=== PATIENT | female | born 1980 | race Caucasian/White ===

== ENCOUNTER 2017-01-06 19:08 | Emergency (ER) | payer MEDICAID ==
[~2017-01-06] VITALS: Ht 175.3 cm; Wt 104.3 kg
[2017-01-06 19:12] VITALS: BP 150/90
--- NOTE | 2017-01-06 19:32 | NUR ---
PT. AMBULATES TO ER BED 5
[2017-01-06] MEDS ORDERED: KETOROLAC 30 MG/ML VIAL IM ONE (19:40)
--- NOTE | 2017-01-06 19:40 | NUR ---
36Y/F PATIENT PRESENTS TO ED WITH C/O RT. EAR PAIN X 3 DAYS . PT STATES NO FEVER. DENIES N/V/D; SKIN IS PINK/WARM/DRY; AAOX4 WITH EVEN AND STEADY GAIT; LUNGS CLEAR BL; HR EVEN AND REGULAR; PT DENIES ANY FEVER, CP, SOB, OR COUGH AT THIS TIME; PATIENT STATES PAIN OF 7/10 AT THIS TIME; VSS; PATIENT POSITIONED FOR COMFORT; HOB ELEVATED; BEDRAILS UP X2; BED DOWN. ER MD MADE AWARE OF PT STATUS.
--- NOTE | 2017-01-06 19:40 | NUR ---
Patient being evaluated by at bedside.
--- NOTE | 2017-01-06 20:15 | NUR ---
Note undone in EDM - 01/06/17 at 2018 by MED 36Y/F PATIENT PRESENTS TO ED WITH C/O RT. EAR PAIN X 3 DAYS . PT STATES NO FEVER. DENIES N/V/D; SKIN IS PINK/WARM/DRY; AAOX4 WITH EVEN AND STEADY GAIT; LUNGS CLEAR BL; HR EVEN AND REGULAR; PT DENIES ANY FEVER, CP, SOB, OR COUGH AT THIS TIME; PATIENT STATES PAIN OF 7/10 AT THIS TIME; VSS; PATIENT POSITIONED FOR COMFORT; HOB ELEVATED; BEDRAILS UP X2; BED DOWN. ER MADE AWARE OF PT STATUS.
--- NOTE | 2017-01-06 20:15 | NUR ---
Patient discharged with v/s stable. Written and verbal after care instructions given and explained. Patient alert, oriented and verbalized understanding of instructions. Ambulatory with steady gait. All questions addressed prior to discharge. ID band removed. Patient advised to follow up with PMD. Rx of CIPRODEX 0.3%-0.1% OTIC SUSPENSION, NAPROSYN 500 MG, NORCO 5/325 MG, AUGMENTIN 875 MG given. Patient educated on indication of medication including possible reaction and side effects. Opportunity to ask questions provided and answered.
[2017-01-06 20:17] VITALS: BP 128/91
== END 2017-01-06 20:15 | disposition home or self-care (01) ==
LOC: MED 19:08
DX: H60.92 Unspecified otitis externa, left ear (principal); R03.0 Elevated blood-pressure reading, without diagnosis of hypertension
CPT/HCPCS: 81002; 81025; 96372; 99283; J1885

== ENCOUNTER 2018-03-28 19:55 | Emergency (ER) | payer MEDICAID ==
[~2018-03-28] VITALS: Ht 167.6 cm; Wt 101.2 kg
[2018-03-28 19:58] VITALS: BP 134/82
[2018-03-28 20:43] LABS: APPEARANCE,URINE CLEAR (CLEAR); BILIRUBIN,URINE NEGATIVE (NEGATIVE); BLOOD, URINE TRACE-I (NEGATIVE); COLOR,URINE YELLOW (YELLOW); LEUKOCYTE ESTERASE ,URINE 2+ (NEGATIVE); NITRITE, URINE NEGATIVE (NEGATIVE); UGLUCOSE 1+ (NEGATIVE)
[2018-03-28 20:54] LABS: RBC,URINE 0-5 (RARE) /HPF (0-5); WBC,URINE 20-60 /HPF (0-5)
--- NOTE | 2018-03-28 21:15 | NUR ---
PT AMBULATED TO BED 8
--- NOTE | 2018-03-28 21:15 | NUR ---
37/F CAME IN W C/O INTERMITTENT DIZZINESS AND PAINFUL URINATION X 3 WEEKS. PT REPORTS SUDDEN ONSET OF DIZZINESS FOR 3 WEEKS, STATES " I MIGHT HAVE PASSED OUT TWICE, I DONT KNOW". NO S/S OF HEAD INJURY. ALSO REPORTS INTERMITTENT RT FLANK PAIN, DENIES HEMATURIA. REPORTS NAUSEA. DENIES PMH
--- NOTE | 2018-03-28 22:10 | NUR ---
Dr. Cramer evaluating patient at bedside.
[2018-03-28] MEDS ORDERED: NACL 0.9% 1,000 ML IV ONE (22:45)
[2018-03-28] MEDS ORDERED: cefTRIAXone 1,000 MG VIAL ONE (22:55)
[2018-03-28 23:26] VITALS: BP 114/64
--- NOTE | 2018-03-28 23:26 | NUR ---
Patient discharged with v/s stable. Written and verbal after care instructions given and explained. Patient alert, oriented and verbalized understanding of instructions. Ambulatory with steady gait. All questions addressed prior to discharge. ID band removed. Patient advised to follow up with PMD. Rx of MACROBID given. Patient educated on indication of medication including possible reaction and side effects. Opportunity to ask questions provided and answered. IV removed, catheter intact and site benign. Applied folded 4x4 gauze and tape to stop bleeding.
== END 2018-03-28 23:26 | disposition home or self-care (01) ==
LOC: MED 19:55
DX: E86.0 Dehydration (principal); N39.0 Urinary tract infection, site not specified
CPT/HCPCS: 70450; 81001; 81025; 87086; 93005; 96365; 99285; J0696; J7060

== ENCOUNTER 2018-11-30 13:27 | Emergency (ER) | payer MEDICAID ==
[~2018-11-30] VITALS: Ht 175.3 cm; Wt 97.7 kg
[2018-11-30 13:33] VITALS: BP 132/90
--- NOTE | 2018-11-30 13:45 | NUR ---
C/O EPIGASTRIC PAIN X30 MIN. PT REPORTS SHARP PAIN WITH INSPIRATION IN EPIGASTRIC REGION AND LT AND RT UPPER ABD JUST BELOW RIB CAGE AND NUMBNES IN BL HANDS. PT ALSO STATES SHE HAS BEEN GETTING DIZZY X3 WEEKS WHEN SHE STANDS UP. DENIES N/V/D; SKIN IS PINK/WARM/DRY; AAOX4 WITH EVEN AND STEADY GAIT; PT DENIES ANY FEVER, CP, SOB, OR COUGH AT THIS TIME; PATIENT STATES PAIN OF 8/10 AT THIS TIME; VSS; PATIENT POSITIONED FOR COMFORT; HOB ELEVATED; BEDRAILS UP X1; BED DOWN. ER MD MADE AWARE OF PT STATUS.
[2018-11-30] MEDS ORDERED: ALUMINUM HYD/MAG/SIMETHICONE 30 ML UDC PO ONE (13:50)
[2018-11-30] MEDS ORDERED: DICYCLOMINE HCL LIQUID 10 MG/5 ML UDC PO ONE (13:50)
[2018-11-30] MEDS ORDERED: LIDOCAINE VISCOUS 2% 20 ML UDC PO ONE (13:50)
[2018-11-30 14:39] VITALS: BP 134/86
--- NOTE | 2018-11-30 14:39 | NUR ---
Patient discharged with v/s stable. Written and verbal after care instructions given and explained. Patient alert, oriented and verbalized understanding of instructions. Ambulatory with steady gait. All questions addressed prior to discharge. ID band removed. Patient advised to follow up with PMD. Rx of prilosec given. Patient educated on indication of medication including possible reaction and side effects. Opportunity to ask questions provided and answered.
== END 2018-11-30 14:39 | disposition home or self-care (01) ==
LOC: MED 13:27
DX: K29.00 Acute gastritis without bleeding (principal); R07.1 Chest pain on breathing; R11.0 Nausea; E11.9 Type 2 diabetes mellitus without complications
CPT/HCPCS: 81002; 81025; 99283

== ENCOUNTER 2019-08-05 11:40 | Inpatient (IN) | payer MEDICAID ==
[~2019-08-05] VITALS: Ht 177.8 cm; Wt 96.6 kg
[2019-08-05 11:55] VITALS: BP 131/69
--- NOTE | 2019-08-05 11:57 | NUR ---
PT AMBULATED TO LOBBY WITH STEADY GAIT.
--- NOTE | 2019-08-05 12:51 | NUR ---
Patient ambulated to bed 4. RN evaluating patient at bedside.
--- NOTE | 2019-08-05 13:08 | NUR ---
39/F BIB FAMILY C/O ABD PAIN RADIATING TO BACK X 3 DAYS. MEDHX: DM. ABD SOFT. PATIENT STATES PAIN OF 10/10 AT THIS TIME.PATIENT POSITIONED FOR COMFORT; HOB ELEVATED; BEDRAILS UP X1; BED DOWN. ER MD MADE AWARE OF PT STATUS.
[2019-08-05] MEDS ORDERED: MORPHINE SULFATE 4 MG/ML SYR IVP ONE (13:25)
[2019-08-05] MEDS ORDERED: NACL 0.9% 1,000 ML IV ONE (13:25)
[2019-08-05] MEDS ORDERED: ONDANSETRON 4 MG/2 ML VIAL IVP ONE (13:25)
--- NOTE | 2019-08-05 13:45 | NUR ---
LAB AT BEDSIDE.
--- NOTE | 2019-08-05 14:03 | NUR ---
US tech at bedside for exam.
[2019-08-05 14:05] LABS: BASOPHILS # (AUTO) 0.1 K/uL (0.00-0.22); BASOPHILS % (AUTO) 0.9 % (0.0-2.0); EOSINOPHILS % (AUTO) 0.4 % (0.0-4.0); HEMATOCRIT 37.6 % (36-48); HEMOGLOBIN 12.3 g/dL (12.0-16.0); LYMPHOCYTES # (AUTO) 1.2 K/uL (2.5-16.5); LYMPHOCYTES % (AUTO) 16.7 % (20.5-51.1); MEAN CORPUSCULAR HEMOGLOBIN 29 pg (27-31); MEAN CORPUSCULAR HGB CONC 33 g/dL (33-37); MONOCYTES # (AUTO) 0.4 K/uL (0.8-1.0); MONOCYTES % (AUTO) 5.5 % (1.7-9.3); NEUTROPHILS # (AUTO) 5.3 K/uL (1.8-7.7); NEUTROPHILS % (AUTO) 76.5 % (42.2-75.2); PLATELET COUNT (AUTO) 261 K/uL (140-450); RED BLOOD CELL COUNT(AUTO) 4.27 MIL/uL (4.20-5.40)
[2019-08-05 14:22] LABS: ALBUMIN 3.4 g/dL (3.4-5.0); ANION GAP 10.8 (8-16); CARBON DIOXIDE 28.4 mmol/L (21-32); CREATININE 0.8 mg/dL (0.6-1.3); POTASSIUM 4.2 mmol/L (3.5-5.1); TOTAL BILIRUBIN 3.7 mg/dL (0.0-1.0)
[2019-08-05 15:02] LABS: APPEARANCE,URINE SL CLOUDY (CLEAR); BILIRUBIN,URINE 2+ (NEGATIVE); BLOOD, URINE NEGATIVE (NEGATIVE); COLOR,URINE ORANGE (YELLOW); LEUKOCYTE ESTERASE ,URINE TRACE (NEGATIVE); NITRITE, URINE NEGATIVE (NEGATIVE); UGLUCOSE 3+ (NEGATIVE)
[2019-08-05 15:13] LABS: RBC,URINE 0-5 /HPF (0-5); WBC,URINE 0-5 /HPF (0-5)
[2019-08-05] MEDS ORDERED: DEXT 5% /NACL 0.9% 1,000 ML IV SCH (17:06)
--- NOTE | 2019-08-05 17:14 | NUR ---
X RAY AT BEDSIDE.
--- NOTE | 2019-08-05 17:22 | NUR ---
PT TAKEN TO CT .
[2019-08-05 17:45] VITALS: BP 113/63
--- NOTE | 2019-08-05 17:45 | NUR ---
RECEIVED REPORT FROM QUALITY CONTROL LEADKODY SALAZAR. PT IS AAOX4, NO C/O PAIN AT THIS TIME. IV ON LT AC 20 GA ON SALINE LOCK, FLUSHING WITH NO RESISTANCE. RESPIRATIONS EVEN AND UNLABORED ON RA. ACTIVE BS, SOFT ABD, LBM 08/05/19. PT IS AWARE THAT SHE IS TO BE KEPT NPO, PT IS AGREEABLE. PT TRANSFERRED FROM WHEELCHAIR TO BED WITH STEADY GAIT. CALL LIGHT IS WITHIN REACH. REVIEWED POC WITH PT, PT VERBALIZED UNDERSTANDING.
--- NOTE | 2019-08-05 17:45 | NUR ---
Patient will be admitted to care of DR LOPEZ. Admited to [facility]. Will go to [id number]. Belongings list completed. Report to [facility].
[2019-08-05 18:09] LABS: PROTHROMBIN TIME 9.5 secs (10.8-13.4)
[2019-08-05 18:20] LABS: CHOL/HDL RATIO 4.7 (1-4.5); FREE T4 (FREE THYROXINE) 2.73 ng/dL (0.76-1.46); MAGNESIUM 1.7 mg/dL (1.8-2.4); PHOSPHORUS 2.4 mg/dL (2.5-4.9); THYROID STIMULATING HORMONE 1.99 uIU/mL (0.34-3.74)
--- NOTE | 2019-08-05 18:25 | NUR ---
STUDENT RESIDENTS AT BEDSIDE ASKING ADMISSION QUESTIONS AND PHYSICAL ASSESSMENTS. PT HAS NO S/S OF DISTRESS.
[2019-08-05] MEDS ORDERED: DOCUSATE SODIUM 100 MG GELCAP PO PRN (19:05)
[2019-08-05] MEDS ORDERED: ACETAMINOPHEN 325 MG TAB PO PRN (19:05)
[2019-08-05] MEDS ORDERED: LORazepam 2 MG/ML VIAL IM/IVP PRN (19:05)
[2019-08-05] MEDS ORDERED: ZOLPIDEM 5 MG TAB PO PRN (19:05)
--- NOTE | 2019-08-05 19:05 | NUR ---
ENDORSED PT TO SALES ORDER SPECIALIST NURSE EVA. PT HAS NO S/S OF DISTRESS AT THIS TIME.
--- NOTE | 2019-08-05 19:05 | NUR ---
RECIEVED PT AAOX4 , NID , IV SITE INTACT AND PATENT. NPO EXCEPT MEDS - RE INSTRUCTED . PLAN OF CARE DISCUSSED AND VERBALIZE UNDERSTANDING . C/O OF HEAD ACHE - WILL MEDICATE . ON SAFETY PRECAUTION PROTOCOL - CALL LIGHT WITHIN REACH , WILL CONT. TO MONITOR.
[2019-08-05] MEDS ORDERED: DEXTROSE 50% 50 ML SYR IVP PRN (19:30)
[2019-08-05] MEDS: HYDROcodone/APAP 5/325 MG 1 TAB TAB PO PRN (19:50)
[2019-08-05] MEDS: BLOOD GLUCOSE MONITORING 1 DEV DEV FS SCH (19:54)
[2019-08-05 20:00] VITALS: BP 140/83
[2019-08-05] MEDS: LACTATED RINGERS 1,000 ML IV SCH (20:41)
[2019-08-05] MEDS ORDERED: SODIUM PHOS / POTASSIUM PHOS 1 PKT PDR PO SCH (21:00)
[2019-08-05] MEDS ORDERED: MAGNESIUM CHLORIDE 64 MG TABEC PO SCH (21:00)
[2019-08-05] MEDS ORDERED: cefTRIAXone 1,000 MG VIAL ONE (21:13)
--- NOTE | 2019-08-05 21:17 | NUR ---
UNHOOKED LR - FLUSH THE IV SITE W/ NSS PRIOR THE ROCEPHIN TO BE GIVEN.- TO BE FLUSH AGAIN W/ NSS AFTER ROCEPHIN CONSUME- CONT. TO MONITOR.
--- NOTE | 2019-08-05 22:00 | NUR ---
MADE ROUNDS . SHE SAID REDUCED HEADACHE . WILL CONT. TO MONITOR. MAINTAIN NPO RE INSTRUCTED . CALL LIGHT WITHIN REACH.
[2019-08-06] VITALS: BP 130/70
[2019-08-06 00:06] LABS: BARBITURATE, URINE NEG. ng/ml (NEG <=200); BENZODIAZEPINE, URINE NEG. ng/mL (NEG <=200); CANNABINOID, URINE NEG. ng/mL (NEG <=50); COCAINE, URINE NEG. ng/mL (NEG <=300); OPIATE, URINE NEG. ng/mL (NEG <=2000); PHENCYCLIDINE SCREEN,URINE NEG. ng/mL (NEG <=25)
[2019-08-06] MEDS: ONDANSETRON 4 MG/2 ML VIAL IM/IVP PRN ×3 (00:45→23:16)
[2019-08-06] MEDS: MORPHINE SULFATE 2 MG/ML SYR IVP PRN ×3 (00:45→14:36)
--- NOTE | 2019-08-06 04:00 | NUR ---
NO COMPLAIN MADE.
[2019-08-06] MEDS: LACTATED RINGERS 1,000 ML IV SCH ×4 (05:40→21:30)
--- NOTE | 2019-08-06 06:00 | NUR ---
161 - INSULIN NOT GIVEN ORDERED BY CARLI.
[2019-08-06] MEDS: BLOOD GLUCOSE MONITORING 1 DEV DEV FS SCH ×5 (06:14→21:31)
[2019-08-06 06:51] LABS: BASOPHILS # (AUTO) 0.1 K/uL (0.00-0.22); BASOPHILS % (AUTO) 0.7 % (0.0-2.0); EOSINOPHILS % (AUTO) 0.7 % (0.0-4.0); HEMATOCRIT 35.4 % (36-48); HEMOGLOBIN 11.6 g/dL (12.0-16.0); LYMPHOCYTES # (AUTO) 1.7 K/uL (2.5-16.5); LYMPHOCYTES % (AUTO) 24.5 % (20.5-51.1); MEAN CORPUSCULAR HEMOGLOBIN 29 pg (27-31); MEAN CORPUSCULAR HGB CONC 33 g/dL (33-37); MEAN CORPUSCULAR VOLUME 88.4 fL (80-94); MONOCYTES # (AUTO) 0.4 K/uL (0.8-1.0); MONOCYTES % (AUTO) 5.8 % (1.7-9.3); NEUTROPHILS # (AUTO) 4.8 K/uL (1.8-7.7); NEUTROPHILS % (AUTO) 68.3 % (42.2-75.2); PLATELET COUNT (AUTO) 244 K/uL (140-450); RED BLOOD CELL COUNT(AUTO) 4.01 MIL/uL (4.20-5.40); RED CELL DISTRIBUTION WIDTH 13.9 % (11.6-13.7); WHITE BLOOD COUNT (AUTO) 7.1 K/uL (4.8-10.8)
--- NOTE | 2019-08-06 07:29 | NUR ---
ENDORSE TO AM SHIFT -PT- STABLE - ENDORSE TO AM SHIFT ABOUT THE PREACAUTIONARY FOR ROCEPHIN - ADM. DONT GIVE IT W/ LR.
--- NOTE | 2019-08-06 07:35 | NUR ---
RECEIVED REPORT FROM BARREL CLEANER RN FOR CONTINUITY OF CARE. PT IS AAOX4, NO C/O PAIN AT THIS TIME. IV ON LT AC 20 GA INFUSING LR @ 100ML/HR, FLUSHING WITH NO RESISTANCE. RESPIRATIONS EVEN AND UNLABORED ON RA. ACTIVE BS, SOFT ABD, LBM 08/05/19. PT IS AWARE THAT SHE IS TO BE KEPT NPO FOR POSSIBLE PROCEDURE TODAY, PT IS AGREEABLE. DISCUSSED POC WITH PT AND PT VERBALIZED UNDERSTANDING. CALL LIGHT IS WITHIN REACH. BED IN LOW POSITION. WILL ROUND FREQUENTLY ON PT.
[2019-08-06 07:38] LABS: ALBUMIN 3.1 g/dL (3.4-5.0); ANION GAP 8.8 (8-16); CARBON DIOXIDE 29.4 mmol/L (21-32); CREATININE 0.7 mg/dL (0.6-1.3); MAGNESIUM 1.7 mg/dL (1.8-2.4); PHOSPHORUS 3.2 mg/dL (2.5-4.9); POTASSIUM 4.2 mmol/L (3.5-5.1); TOTAL BILIRUBIN 2.3 mg/dL (0.0-1.0)
[2019-08-06 08:00] VITALS: BP 105/64
[2019-08-06] MEDS: SODIUM PHOS / POTASSIUM PHOS 1 PKT PDR PO SCH ×3 (08:10→17:00)
[2019-08-06] MEDS: MAGNESIUM CHLORIDE 64 MG TABEC PO SCH (08:11)
[2019-08-06] MEDS: LACTOBACILLUS RHAMNOSUS GG 1 EACH CAP PO SCH (08:11)
--- NOTE | 2019-08-06 08:20 | NUR ---
PATIENT HAS BEEN SCREENED AND CATEGORIZED HIGH NUTRITION RISK. PATIENT WILL BE SEEN WITHIN 1-2 DAYS OF ADMISSION. 08/06/19-08/07/[address]
--- NOTE | 2019-08-06 09:41 | NUR ---
ADMINISTERED PT MORNING MEDS. PT TOLERATED WELL. ALL NEEDS MET. WILL CONTINUE TO ROUND ON PT.
[2019-08-06] MEDS ORDERED: BUPIVACAINE-MPF/EPI 0.25% 10 ML VIAL INJ ONE (09:59)
[2019-08-06] MEDS ORDERED: LIDOCAINE 1% 500 MG/50 ML VIAL ONE (09:59)
--- NOTE | 2019-08-06 10:45 | NUR ---
PT TAKEN TO OR FOR LAP CHOLY. PT LEFT IN STABLE CONDITION.
[2019-08-06] MEDS ORDERED: PROPOFOL 200 MG/20 ML VIAL IV ONE (10:50)
[2019-08-06] MEDS ORDERED: SUCCINYLCHOLINE CHLORIDE 200 MG/10 ML VIAL IVP ONE (10:50)
[2019-08-06] MEDS ORDERED: ROCURONIUM 50 MG/5 ML VIAL IV ONE (10:50)
[2019-08-06] MEDS ORDERED: DEXAMETHASONE 4 MG/ML VIAL ONE (10:50)
[2019-08-06] MEDS ORDERED: ONDANSETRON 4 MG/2 ML VIAL ONE (10:50)
[2019-08-06] MEDS ORDERED: MIDAZOLAM 2 MG/2 ML VIAL ONE (10:50)
[2019-08-06] MEDS ORDERED: KETOROLAC 30 MG/ML VIAL ONE (10:50)
[2019-08-06] MEDS ORDERED: fentaNYL 0.05 MG/ML VIAL ONE (10:50)
[2019-08-06] MEDS ORDERED: SEVOFLURANE 250 ML BTL INH ONE (10:50)
[2019-08-06] MEDS ORDERED: MEPERIDINE 50 MG/ML SYR ONE (10:50)
[2019-08-06] MEDS ORDERED: HYDROmorphone 1 MG/ML AMP IVP PRN (11:40)
[2019-08-06] MEDS ORDERED: ONDANSETRON 4 MG/2 ML VIAL IVP PRN (11:40)
[2019-08-06] MEDS ORDERED: diphenhydrAMINE 50 MG/ML VIAL IVP PRN (11:40)
[2019-08-06] MEDS ORDERED: MEPERIDINE 25 MG/ML SYR IVP PRN (11:40)
[2019-08-06] MEDS: INSULIN LISPRO SLIDING SCALE 100 UNITS/ML VIAL SUBQ PRN ×3 (13:10→21:37)
--- NOTE | 2019-08-06 13:54 | NUR ---
08/06/19 RD INITIAL ASSESSMENT COMPLETED PLEASE REFER TO NUTRITION ASSESSMENT UNDER CARE ACTIVITY FOR ESTIMATED NUTRITIONAL NEEDS. 1. CONTINUE NPO DIET PER MD 2. IF/WHEN MEDICALLY APPROPRIATE, CONSIDER ADVANCING PT TO CCHO, CARDIAC DIET 3. RD TO FOLLOW-UP 2-3 DAYS, HIGH RISK SOWMYA ALEMAN RD
--- NOTE | 2019-08-06 13:54 | NUR ---
DC PLANNIN YRS OLD FEMALE PATIENT WAS ADMITTED FROM HOME WITH A DX OF TRANSAMINITIS. 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 STARTED ROCEPHIN CULTURELLE PO ,SURGERY CONSULTED DR KANG FOR CHOLANGIOGRAM AND LAP ALYSSA PENDING, GI CONSULT DR LUKE RECOMMENDED REPEAT LFT IN AM IF SIGNIFICANTLY ELEVATED WILL PERFORM ERCP . DC PLAN TO GO HOME WHEN STABLE CM TO FOLLOW.
--- NOTE | 2019-08-06 14:21 | NUR ---
PT RETURNED FROM OR. PT IN STABLE CONDITION, WILL MONITOR PT VITALS PER PROTOCOL.
--- NOTE | 2019-08-06 15:09 | NUR ---
ANTONI assessment/discharge plan Basic Screen: Yes Name: Vicente Pozo Home Relationship: Pre-Admission Living Arrangements: Lives with Other Other: Vicente Pozo Prior ADL Independent Current Home Health Name/Tel: N/A Current DME/02 Name/Tel: blood glucose monitor Current Hospice Name/Tel: N/A Current Dialysis Name/Tel: N/A Healthcare Decision Maker: Patient Advance Directive No Information Taught: Advance Directive Community Resources Person Taught: Patient Teaching Tools: Community Resources Computer Generated Print Verbal Factors Affecting Learning: None Participation Level: Active Evaluation: Gestures Understanding Verbalizes Understanding Educator: ANTONI Owusu Discipline: Case Mgt/Social Svcs Tentative Discharge Plan Summary: Patient is a 39 year old female admitted for transaminitis. I met with patient and patient's Vicente Pozo at bedside. Patient alert and oriented x4. Patient and Vicente speak Greek. Patient lives at home with her Vicente and plans to return home upon discharge. Patient goes to [place] [address] [facility] [address] . She denied hx of mental health and alcohol/substance abuse. I provided them with education on [employer] www.[employer].org for community resources. They do not have any questions/concerns at this time. Manager Economic and/or Spanish Linguist will follow up as needed. Signature: ANTONI Owusu Date: Aug 06, 2019
--- NOTE | 2019-08-06 15:49 | NUR ---
Dr. Jackson made aware that patient wants flu shot up on discharge. He said let not do the flu shot here because pt has just gone through surgery. Let patient do follow up with her PCP regarding flu shot. KODY Tamayo aware.
[2019-08-06 16:00] VITALS: BP 141/79
[2019-08-06] MEDS: HYDROmorphone 1 MG/ML AMP IVP PRN ×2 (16:02→21:46)
--- NOTE | 2019-08-06 16:27 | NUR ---
PT RESTING IN BED. PT WAS COMPLAINING OF SEVERE ABD PAIN EVEN THOUGH MORPHINE WAS GIVEN UPON RETURNING FROM PROCEDURE. PER MD, DILAUDID TO BE GIVEN. DILAUDID GIVEN TO PT.
--- NOTE | 2019-08-06 17:58 | NUR ---
PT HAVING DINNER. ALL NEEDS MET.
--- NOTE | 2019-08-06 19:35 | NUR ---
ENDORSED PT TO OUTREACH CLINICIAN FOR CONTINUITY OF CARE. PT IN STABLE CONDITION AT THIS TIME.
--- NOTE | 2019-08-06 19:36 | NUR ---
RECEIVED REPORT FROM AM SHIFT KODY ROBLES FOR CONTINUITY OF CARE. PT IS AAOX4, AMBULATORY. PT C/O OF PAIN ON THE ABDOMEN, WILL GIVE PAIN MED PER ORDERS. IV ON LEFT AC 20 G INFUSING IV ORDERED, RESPIRATIONS EVEN AND UNLABORED ON RA. WITH 5 SMALL INCISIONS ON THE ABDOMEN W/ DERMABOND, NO BLEEDING NOTED. PT IS ON CLEAR LIQ TILL MKIDNIGHT, THEN NPO STARTING MIDNIGHT, FOR ERCP W/ ANESTHESIA TOMPRROW ,CONSENT SIGNED CALL LIGHT IS WITHIN REACH. BED IN LOW POSITION.
--- NOTE | 2019-08-06 19:47 | NUR ---
CONSENT FOR ERCP W/ ANESTHESIA TOMORROW SIGNED BY PATIENT. PER PT DR. LUKE WENT EARLIER AND EXPLAINED THE PROCEDURE.CONSENT ATTACHED TO CHART
--- NOTE | 2019-08-06 21:42 | NUR ---
PIBBYBACK THE MULU Dial/ RANDA MCGINNIS BECAUSE PER PHARMACY LR NOT COMPATIBLE Addendum: 08/06/19 at 2143 by Patience Wagner RN PIGGYBACK
--- NOTE | 2019-08-06 23:16 | NUR ---
PT C/O NAUSEA, GIVEN ZOFRAN PRN ORDERED
--- NOTE | 2019-08-06 23:40 | NUR ---
2 LR'S ORDERS BUT PER ORDERS (DR. COTO) RUN THE 120 ML/HR. ONE OF THE LR ORDERS WILL MARTY.
[2019-08-07 00:42] VITALS: BP 110/62
[2019-08-07] MEDS: LACTATED RINGERS 1,000 ML IV SCH ×4 (01:40→20:30)
[2019-08-07] MEDS: HYDROmorphone 1 MG/ML AMP IVP PRN (04:01)
[2019-08-07] MEDS: BLOOD GLUCOSE MONITORING 1 DEV DEV FS SCH ×4 (05:31→20:34)
--- NOTE | 2019-08-07 05:32 | NUR ---
TAKEN THE BLOOD SUGAR 157 MG/DL- NO INSULIN COVERAGE GIVEN BECAUSE PT IS NPO
[2019-08-07 06:09] LABS: HEPATITIS A ANTIBODY IGM Negative (Negative); HEPATITIS B CORE AB TOTAL Negative (Negative); HEPATITIS B SURFACE ANTIBODY Non Reactive (.); HEPATITIS B SURFACE ANTIGEN Negative (Negative); T4 (THYROXINE) 10.3 ug/dL (4.5-12.0)
--- NOTE | 2019-08-07 06:20 | NUR ---
PT AWAKE BUT SUPINE IN BED, NO COMPLAINTS OF PAIN AT THIS TIME. NO SOB, NO RESPIRATORY DISTRESS. ENDORSED TO NEXT SHIFT FOR CONTINUITY OF CARE. FOR ERCP W/ ANESTHESIA TODAY
[2019-08-07 07:15] LABS: BASOPHILS % (AUTO) 0.3 % (0.0-2.0); EOSINOPHILS % (AUTO) 0.1 % (0.0-4.0); HEMATOCRIT 35.8 % (36-48); HEMOGLOBIN 11.6 g/dL (12.0-16.0); LYMPHOCYTES # (AUTO) 1.9 K/uL (2.5-16.5); LYMPHOCYTES % (AUTO) 16.3 % (20.5-51.1); MEAN CORPUSCULAR HEMOGLOBIN 29 pg (27-31); MEAN CORPUSCULAR HGB CONC 33 g/dL (33-37); MEAN CORPUSCULAR VOLUME 88.8 fL (80-94); MONOCYTES # (AUTO) 0.5 K/uL (0.8-1.0); MONOCYTES % (AUTO) 4.7 % (1.7-9.3); NEUTROPHILS # (AUTO) 8.9 K/uL (1.8-7.7); NEUTROPHILS % (AUTO) 78.6 % (42.2-75.2); PLATELET COUNT (AUTO) 237 K/uL (140-450); RED BLOOD CELL COUNT(AUTO) 4.03 MIL/uL (4.20-5.40); RED CELL DISTRIBUTION WIDTH 14.2 % (11.6-13.7); WHITE BLOOD COUNT (AUTO) 11.4 K/uL (4.8-10.8)
--- NOTE | 2019-08-07 07:20 | NUR ---
RECEIVED REPORT AT BEDSIDE FROM NOC SHIFT RN. PATIENT LYING IN BED. AAOX4. RESPIRATION EVEN AND UNLABORED. NOT IN ANY ACUTE DISTRESS. NO C/O PAIN/DISCOMFORT AT THIS TIME. ON NPO EXCEPT MEDS. DERMABOND DRESSING ON ABDOMINAL AREA NOTED, CLEAN AND DRY. NKA. IV SITE TO LAC 20G WITH IVF INFUSING WELL. ABLE TO AMBULATE WITH ASSIST. SAFETY MEASURES IN PLACE. CALL LIGHT WITHIN REACH.
[2019-08-07 07:32] LABS: ANION GAP 10.9 (8-16); CARBON DIOXIDE 28.9 mmol/L (21-32); MAGNESIUM 1.5 mg/dL (1.8-2.4); POTASSIUM 3.8 mmol/L (3.5-5.1)
[2019-08-07 08:00] VITALS: BP 117/73
[2019-08-07 08:05] LABS: CREATININE 0.7 mg/dL (0.6-1.3); PHOSPHORUS 3.3 mg/dL (2.5-4.9); TOTAL BILIRUBIN 1.7 mg/dL (0.0-1.0)
[2019-08-07] MEDS: LACTOBACILLUS RHAMNOSUS GG 1 EACH CAP PO SCH (09:30)
[2019-08-07] MEDS: MAGNESIUM CHLORIDE 64 MG TABEC PO SCH (09:30)
[2019-08-07] MEDS: HYDROcodone/APAP 5/325 MG 1 TAB TAB PO PRN (09:31)
[2019-08-07] MEDS: SODIUM PHOS / POTASSIUM PHOS 1 PKT PDR PO SCH ×3 (09:31→16:37)
--- NOTE | 2019-08-07 09:32 | NUR ---
ADMINISTERED SCHEDULED MEDS PER MD ORDERED. MED ED PROVIDED TO PATIENT. PATIENT VERBALIZED UNDERSTANDING. PATIENT ALSO COMPLAINED OF 6/10 PAIN ON HER INCISIONAL SITES, REPOSITIONED AND SHE SAID "I STILL FEEL PAIN." MEDICATED WITH PRN PAIN MED NORCO. PT SWALLOWED ALL MEDS WITH SIP OF WATER. PT IS RESTING ON BED. VISITORS ROD AND DRAKE ARE BY BEDSIDE. NO SIGNS OF DISTRESS NOTED. SAFETY MEASURES IN PLACE.
[2019-08-07] MEDS ORDERED: MAG SULF 2000 MG/WATER PREMIX 50 ML IV SCH (10:00)
--- NOTE | 2019-08-07 10:05 | NUR ---
ADMINISTERED MAG SULFATE FOR 1.5 FROM AM LAB VIA IVPB PER MD ORDER, MED ED PROVIDED AND PT VERBALIZED UNDERSTANDING. PT AWAKE AND TALKING TO VISITORS BY BEDSIDE. NO SIGNS OF DISTRESS NOTED. SAFETY MEASURES IN PLACE.
--- NOTE | 2019-08-07 10:50 | NUR ---
USED Your Office Agent FOR TRANSLATING TO COMPLETE PRE-OP CHECK LIST, SPOKE WITH JOSE M #[id number]. ANSWERED ALL PT'S QUESTIONS AND PT WAS AWARE OF PROCEDURE.
--- NOTE | 2019-08-07 11:07 | NUR ---
ASSISTED PT TO USE THE BATHROOM AND BACK ON BED COMFORTABLY. PT IS TALKING TO FAMILY AT BEDSIDE. NO SIGNS OF DISTRESS NOTED. SAFETY MEASURES IN PLACE.
--- NOTE | 2019-08-07 12:09 | NUR ---
BLOOD GLUCOSE CHECKED 177. INSULIN NOT GIVEN DUE TO PATIENT ON NPO. PATIENT IS TALKING TO HER FAMILY AT BEDSIDE. NO SOB NOTED. SAFETY MEASURES IN PLACE.
--- NOTE | 2019-08-07 13:26 | NUR ---
PATIENT IS SLEEPING AT THIS TIME. NO SIGNS OF DISTRESS NOTED. SAFETY MEASURES IN PLACE. FAMILY IS AT BEDSIDE. CALL LIGHT WITHIN REACH.
--- NOTE | 2019-08-07 14:25 | NUR ---
DR LUKE IS TALKING TO PT AND FAMILY AT BEDSIDE. NO SIGNS OF DISTRESS. SAFETY MEASURES IN PLACE.
--- NOTE | 2019-08-07 14:35 | NUR ---
PT IS OFF UNIT WITH OR NURSE. PT IS IN STABLE CONDITION.
[2019-08-07] MEDS ORDERED: PROPOFOL 200 MG/20 ML VIAL IV ONE (15:08)
[2019-08-07 16:20] VITALS: BP 121/71
--- NOTE | 2019-08-07 16:20 | NUR ---
PT CAME BACK TO UNIT VIA PURVI. IV SITE CHANGED TO L HAND 22G, CONNECTED PT TO IVF AND INFUSING PER MD ORDER. INFORMED PT THAT DR CHANGE DIET TO CCHO 60G, AND PT WAS AWARE. PT AWAKE AND TALKING TO FAMILY BY BEDSIDE. VITAL SIGNS TAKEN. NO SIGNS OF DISTRESS NOTED. SAFETY MEASURES IN PLACE.
--- NOTE | 2019-08-07 16:37 | NUR ---
ADMINISTERED SODIUM DAPHNEY PER MD ORDER, MED ED PROVIDED AND PT TOLERATED WELL. CHECKED BLOOD GLUCOSE 161, WILL ADMINISTER HUMALOG WHEN DINNER IS HERE. PT AWAKE AND TALKING TO FAMILY AT BEDSIDE. NO SIGNS OF DISTRESS NOTED. SAFETY MEASURES IN PLACE.
--- NOTE | 2019-08-07 17:12 | NUR ---
AUTOMOTIVE SALES PROFESSIONAL ASSISTED PT TO USE THE BATHROOM AND BACK ON BED SAFELY. POSITIONED PT COMFORTABLY. NO SIGNS OF DISTRESS NOTED. SAFETY MEASURES IN PLACE.
[2019-08-07] MEDS: INSULIN LISPRO SLIDING SCALE 100 UNITS/ML VIAL SUBQ PRN ×2 (17:49→20:35)
--- NOTE | 2019-08-07 17:49 | NUR ---
PT RECEIVED HER DINNER TRAY. ADMINISTERED 2 UNIT OF HUMALOG FOR BLOOD GLUCOSE 161, MED ED PROVIDED TO PT AND PT SAID OK. PT IS AWAKE AND STARTING TO EAT DINNER. FAMILY BY BEDSIDE. NO SIGNS OF DISTRESS NOTED. SAFETY MEASURES IN PLACE.
--- NOTE | 2019-08-07 19:31 | NUR ---
ENDORSED PT AT BEDSIDE TO HAY STACKER OPERATOR NURSE MARRY FOR CONTINUITY OF CARE. PT AWAKE AND TALKING TO FAMILY BY BEDSIDE. NO SIGNS OF DISTRESS NOTED. PT IS IN STABLE CONDITION. SAFETY MEASURES IN PLACE.
--- NOTE | 2019-08-07 19:35 | NUR ---
RECEIVED FROM AM Moo Funes IN BED WITH FAMILY MEMBERS VISITING. PT. AWAKE AND ALERT. ABLE TO SPEAK HEBREW . AT PRESENT ASSISTED BY RESEARCH SOFTWARE ENGINEER TO RESTROOM. ABLE TO STAND UP AND ABLE TO WALK BY HERSELF . CARE PLANS FOR THE NIGHT DISCUSSED WITH HER AND CALL LIGHT WITH IN REACH. INCISION SITES TO STOMACH INTACT AND NO BLEEDING. WITH SEQUENTIALS IN PLACE. WITH LR AT 100 ML/HR. INFUSING WELL IVF SITE INTACT AND NO INFILTRATION NOTED.
[2019-08-07 20:22] VITALS: BP 135/81
[2019-08-07] MEDS: KETOROLAC 30 MG/ML VIAL IVP PRN (20:31)
--- NOTE | 2019-08-07 20:48 | NUR ---
FAMILY MEMBERS LEFT. PT. REQUESTED FOR PAIN RELIEVER WITH PAIN OF 12/31. MEDICATED WITH TORADOL IVP ORDERED. BLOOD SUGAR CHECK AT 190 AT THIS TIME AND COVERED WITH 2 UNITS HUMALOG INSULIN. ABLE TO SPEAK [place]. ABLE TO VERBALIZE WELL. CALL LIGHT WITH IN REACH. ENCOURAGED TO CALL FOR ANY HELP SHE MAY NEED AND IF SHE STANDS UP.
--- NOTE | 2019-08-07 22:26 | NUR ---
PT. USED CALL LIGHT FOR HELP. ASSISTED TO RESTROOM TO URINATE. ABLE TO STAND UP WITH ASSIST. SEEN AMBULATING WELL BY HERSELF. WATCHED OVER HER TILL SHE WAS BACK IN BED SAFE. ENCOURAGED TO USE CALL LIGHT AGAIN EVERY TIME SHE GOES BRP. "OK"
[2019-08-08] VITALS: BP 122/78
[2019-08-08] MEDS: KETOROLAC 30 MG/ML VIAL IVP PRN ×2 (02:50→10:22)
[2019-08-08] MEDS: LACTATED RINGERS 1,000 ML IV SCH (03:01)
--- NOTE | 2019-08-08 03:02 | NUR ---
PT. AWAKE AT THIS TIME AND MEDICATED WITH TORADOL IVP ORDERED FOR ABDOMINAL INCISION SITES. ABLE TO VERBALIZE NEEDS WELL IN MALAGASY. CALL LIGHT WITH IN REACH.
[2019-08-08 03:08] VITALS: BP 133/82
[2019-08-08] MEDS: BLOOD GLUCOSE MONITORING 1 DEV DEV FS SCH ×2 (05:13→11:25)
--- NOTE | 2019-08-08 05:14 | NUR ---
AM PERSONAL HYGIENE RENDERED BY CNAS. AWAKE AND ALERT. ABLE TO VERBALIZE WELL. BLOOD SUGAR CHECK DONE . TOLERATED WELL. 145 MG/DL PER FINGERSTICK . NO INSULIN COVERAGE. ABLE TO USE CALL LIGHT FOR HELP.
[2019-08-08 07:10] LABS: BASOPHILS # (AUTO) 0.1 K/uL (0.00-0.22); BASOPHILS % (AUTO) 0.6 % (0.0-2.0); EOSINOPHILS % (AUTO) 0.3 % (0.0-4.0); HEMATOCRIT 35.3 % (36-48); HEMOGLOBIN 11.7 g/dL (12.0-16.0); LYMPHOCYTES # (AUTO) 1.8 K/uL (2.5-16.5); LYMPHOCYTES % (AUTO) 18.1 % (20.5-51.1); MEAN CORPUSCULAR HEMOGLOBIN 29 pg (27-31); MEAN CORPUSCULAR HGB CONC 33 g/dL (33-37); MEAN CORPUSCULAR VOLUME 88.5 fL (80-94); MONOCYTES # (AUTO) 0.5 K/uL (0.8-1.0); MONOCYTES % (AUTO) 5.5 % (1.7-9.3); NEUTROPHILS # (AUTO) 7.5 K/uL (1.8-7.7); NEUTROPHILS % (AUTO) 75.5 % (42.2-75.2); PLATELET COUNT (AUTO) 208 K/uL (140-450); RED BLOOD CELL COUNT(AUTO) 3.99 MIL/uL (4.20-5.40); RED CELL DISTRIBUTION WIDTH 13.9 % (11.6-13.7); WHITE BLOOD COUNT (AUTO) 9.9 K/uL (4.8-10.8)
--- NOTE | 2019-08-08 07:16 | NUR ---
RECEIVED PATIENT FROM MARKETING COMMUNITY LIAISON NURSE FOR CONTINUITY OF CARE. PATIENT IS AAOX4. SLOVAK SPEAKING. NO SIGNS OF DISTRESS NOTED. RESPIRATIONS EVEN AND UNLABORED, ROOM AIR. VISIBLE CHEST RISE NOTED. SKIN WARM, DRY, INTACT. TWO INCISION NOTED POST ERCP, DERMABOND. IV IN THE LEFT HAND G 22 RUNNING LR 100 AT 60 ML/HR. IV IS FLUSHING WELL. BED IN LOW POSITION. CALL LIGHT IS WITHIN REACH. SAFETY MEASURES IN PLACE. WILL CONTINUE TO MONITOR
[2019-08-08 07:26] LABS: ALBUMIN 2.8 g/dL (3.4-5.0); ANION GAP 11.4 (8-16); CARBON DIOXIDE 28.4 mmol/L (21-32); CREATININE 0.6 mg/dL (0.6-1.3); MAGNESIUM 1.8 mg/dL (1.8-2.4); PHOSPHORUS 3.4 mg/dL (2.5-4.9); POTASSIUM 3.8 mmol/L (3.5-5.1); TOTAL BILIRUBIN 3.7 mg/dL (0.0-1.0)
[2019-08-08 07:39] LABS: ALBUMIN 2.8 g/dL (3.4-5.0); BILIRUBIN,DIRECT 2.7 mg/dL (0.0-0.3); TOTAL BILIRUBIN 3.7 mg/dL (0.0-1.0)
--- NOTE | 2019-08-08 07:50 | NUR ---
GIVEN TYLENOL FOR HEADACHE 3/10 PAIN LEVEL. EXPLAINED TO PATIENT MED. PATIENT VERBALIZED UNDERSTANDING. PATIENT IS EATING BREAKFAST AT THIS TIME. WILL CONTINUE TO MONITOR. FAMILY AT BEDSIDE
[2019-08-08 08:00] VITALS: BP 136/86
[2019-08-08] MEDS: MAGNESIUM CHLORIDE 64 MG TABEC PO SCH (08:18)
[2019-08-08] MEDS: LACTOBACILLUS RHAMNOSUS GG 1 EACH CAP PO SCH (08:18)
[2019-08-08] MEDS: SODIUM PHOS / POTASSIUM PHOS 1 PKT PDR PO SCH ×2 (08:19→11:26)
--- NOTE | 2019-08-08 08:19 | NUR ---
GIVEN MORNING MEDICATIONS PO. EXPLAINED TO PATIENT MEDS AND SIDE EFFECTS. PATIENT VERBALIZED UNDERSTANDING. BED IN LOW POSITION. CALL LIGHT IS WITHIN REACH. WILL CONTINUE TO MONITOR
[2019-08-08] MEDS ORDERED: SULF-59 PO (10:14)
[2019-08-08] MEDS ORDERED: ASCO1CAP75 PO ×2 (10:14→11:27)
--- NOTE | 2019-08-08 10:22 | NUR ---
GIVEN TORADOL FOR 12/31 HEADACHE. EXPLAINED TO PATIENT MED AND SIDE EFFECTS. PATIENT VERBALIZED UNDERSTANDING. BED IN LOW POSITION. CALL LIGHT IS WITHIN REACH. WILL CONTINUE TO MONITOR
--- NOTE | 2019-08-08 10:34 | NUR ---
08/08/19 RD FOLLOW UP COMPLETED PLEASE REFER TO NUTRITION PROGRESS NOTE UNDER CARE ACTIVITY FOR ESTIMATED NUTRITION NEEDS. RD RECOMMENDATIONS: 1. RECOMMEND CONTINUE 60G CCHO DIET. 2. EDUCATED PT AND FAMILY ON DIET. 3. F/U 3-5 DAYS; MODERATE RISK SLIM VICTOR MBA, RD
[2019-08-08 10:56] VITALS: BP 136/86
[2019-08-08] MEDS ORDERED: INFLUENZA VACCINE QUAD 0.5 ML SYR IMVAC PRN (11:15)
--- NOTE | 2019-08-08 11:20 | NUR ---
GIVEN DISCHARGE INSTRUCTIONS. EXPLAINED TO PATIENT TO SCHOOL PROGRAM DIRECTOR PRESCRIBED MEDICATIONS BY DOCTOR AT PREFERRED PHARMACY AND TO FOLLOW UP WITH PCP. EXPLAINED TO SEEK MEDICAL ATTENTION IF THERE'S FEVER, ABDOMINAL PAIN, OR ANY OTHER ABNORMAL DISCOMFORT. DISCUSSED PATIENT'S APPOINTMENT WITH THE DOCTORS. PATIENT AND VERBALIZED UNDERSTANDING. WILL GIVE FLU SHOT.
[2019-08-08] MEDS ORDERED: CLAR500T14 PO (11:25)
[2019-08-08] MEDS ORDERED: OMEP20TC12 PO (11:25)
[2019-08-08] MEDS ORDERED: AMOX500C25 PO (11:26)
[2019-08-08] MEDS: INSULIN LISPRO SLIDING SCALE 100 UNITS/ML VIAL SUBQ PRN (11:31)
--- NOTE | 2019-08-08 11:47 | NUR ---
GIVEN FLU SHOT IN THE LEFT UPPER ARM. GIVEN INSULIN IN THE RIGHT UPPER ARM FOR BLOOD SUGAR 188. EXPLAINED TO PATIENT MED AND SIDE EFFECTS. PATIENT VERBALIZED UNDERSTANDING. DISCONTINUED IV. NO BLEEDING. SECURED WITH 2X2 AND TAPE. REMOVED ID BAND
--- NOTE | 2019-08-08 11:50 | NUR ---
DISCHARGED PATIENT VIA WHEELCHAIR ACCOMPANIED BY . REMOVED ID BAND. PATIENT IS IN STABLE CONDITION. NO SOB, NO PAIN.
== END 2019-08-08 11:50 | disposition home or self-care (01) | DRG 263 ==
LOC: MED 11:40 → MTU 17:06
PROVIDERS: ADMIT General Practice; ATTEND General Practice
PROC: BF101ZZ Fluoroscopy of Bile Ducts using Low Osmolar Contrast (ICD-10-PCS; 2019-08-06)
PROC: 0FT44ZZ Resection of Gallbladder, Percutaneous Endoscopic Approach (ICD-10-PCS; principal; 2019-08-06 10:00)
PROC: 0F798ZZ Dilation of Common Bile Duct, Via Natural or Artificial Opening Endoscopic (ICD-10-PCS; 2019-08-07)
PROC: 0DB68ZX Excision of Stomach, Via Natural or Artificial Opening Endoscopic, Diagnostic (ICD-10-PCS; 2019-08-07)
PROC: BF101ZZ Fluoroscopy of Bile Ducts using Low Osmolar Contrast (ICD-10-PCS; 2019-08-07)
DX: K80.20 Calculus of gallbladder without cholecystitis without obstruction (principal); D68.59 Other primary thrombophilia; E83.39 Other disorders of phosphorus metabolism; E83.42 Hypomagnesemia; K75.81 Nonalcoholic steatohepatitis (NASH); E11.9 Type 2 diabetes mellitus without complications; B96.81 Helicobacter pylori [H. pylori] as the cause of diseases classified elsewhere; K29.70 Gastritis, unspecified, without bleeding; R74.0 Nonspecific elevation of levels of transaminase and lactic acid dehydrogenase [LDH]; E05.90 Thyrotoxicosis, unspecified without thyrotoxic crisis or storm; K83.8 Other specified diseases of biliary tract; E78.5 Hyperlipidemia, unspecified; E66.9 Obesity, unspecified; Z68.30 Body mass index [BMI] 30.0-30.9, adult; Z98.51 Tubal ligation status; Z83.3 Family history of diabetes mellitus
CPT/HCPCS: 36415; 71045; 74300; 74330; 76705; 80053; 80076; 80305; 81001; 82150; 82948; 83036; 83690; 83735; 83880; 84100; 84436; 84439; 84443; 84479; 84484; 84703; 85025; 85610; 85730; 86677; 86704; 86706; 86708; 86709; 86803; 87081; 87340; 88304; 96361; 96374; 96375; 99285; C1769; C1773; J0330; J0696; J1100; J1170; J1815; J1885; J2001; J2175; J2250; J2270; J2405; J2704; J3010; J3475; J3490; J7030; J7042; J7060; J7120; Q0092; Q9965; Q9967

== ENCOUNTER 2019-11-18 07:30 | Emergency (ER) | payer MEDICAID ==
[~2019-11-18] VITALS: Ht 175.3 cm; Wt 97.1 kg
[~2019-11-18 07:30] MED LIST: AMOX500C25 PO; ASCO1CAP75 PO; CLAR500T14 PO; OMEP20TC12 PO
[2019-11-18 07:32] VITALS: BP 145/99
[2019-11-18 08:21] VITALS: BP 145/99
== END 2019-11-18 08:22 | disposition home or self-care (01) ==
LOC: MED 07:30
DX: L25.9 Unspecified contact dermatitis, unspecified cause (principal); E11.9 Type 2 diabetes mellitus without complications; R03.0 Elevated blood-pressure reading, without diagnosis of hypertension; Z79.899 Other long term (current) drug therapy
CPT/HCPCS: 82948; 99283

== ENCOUNTER 2022-02-22 07:51 | Emergency (ER) | payer MEDICAID ==
[~2022-02-22] VITALS: Ht 175.3 cm; Wt 91.2 kg
[~2022-02-22 07:51] MED LIST changes: +OMEP-278 PO; -OMEP20TC12 PO
[2022-02-22 07:55] VITALS: BP 148/86
[2022-02-22] MEDS ORDERED: ACET-8386 PO (08:18)
[2022-02-22] MEDS ORDERED: LIDO15SO RIGHT EAR (08:18)
[2022-02-22] MEDS ORDERED: COROTSOL OT (08:18)
[2022-02-22] MEDS ORDERED: ACETAMINOPHEN 325 MG TAB PO ONE (08:20)
[2022-02-22 08:34] VITALS: BP 148/86
== END 2022-02-22 08:33 | disposition home or self-care (01) ==
LOC: MED 07:51
DX: H60.91 Unspecified otitis externa, right ear (principal); Z79.899 Other long term (current) drug therapy; Z90.49 Acquired absence of other specified parts of digestive tract
CPT/HCPCS: 99283